=== PATIENT | female | born 1965 | race Caucasian/White ===

== ENCOUNTER 2017-01-17 11:39 | Emergency (ER) | payer OTHER ==
[2017-01-17] MEDS ORDERED: Sodium Chloride 0.9% 1,000 ML IV ONE (12:30)
[2017-01-17] MEDS ORDERED: Dextrose 5%-Lactated Ringers 1,000 ML IV SCH (12:30)
[2017-01-17] MEDS ORDERED: Lactated Ringers 1,000 ML IV SCH (12:30)
[2017-01-17] MEDS ORDERED: Norepinephrine 4 MG in Dextrose 5% in Water 246 ML IV SCH ×2 (13:45)
[2017-01-17 15:27] VITALS: BP 81/45
--- NOTE | 2017-01-18 02:43 | ER ---
DATE SEEN: 01/17/2017 ADDITIONAL HISTORY: Patient had gastric bypass, hypertension, apparently legally blind, analgesia agreement revoked 11/25/2016, lower back pain, chronic back pain. 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 Vitamin B12 nutritional deficiency, and gastroesophageal reflux disease. Obesity. ALLERGIES: Environmental and morphine. PHYSICAL EXAMINATION: VITAL SIGNS: Normal blood pressure at 106/68. 240 plus pounds. /[id number] LS/MODL
--- NOTE | 2017-01-21 02:18 | ER ---
DATE SEEN: 01/17/2017 Negative Campylobacter, shiga toxin, salmonella, shigella, E coli per stool culture performed on 01/17/2017. /[id number] FER/JESUS
--- NOTE | 2017-01-22 10:30 | ER ---
DATE SEEN: 01/17/2017 TIME SEEN: This 52-year-old woman was seen at 1200 hours. HISTORY OF PRESENT ILLNESS: This 52-year-old woman complains she is not feeling well, had diarrhea almost 400 mL en route. She has had diarrhea 10 times a day for the last week and was more extensive recently. She feels lightheaded and dizzy. She has a headache 7/10 in intensity and off and on greater than usual. She has history of headache and migraines, for which she used Imitrex successfully. She has not used Imitrex tonight for this headache. The last time she passed urine was this morning. Normally she has twice a night nocturia. The patient has refused to stop smoking. Still smokes 5 cigarettes a day, and has for many years, for 25 years. At least three alcohol drinks per day for at least 3 days a week. She does have hypertension, migraines, depression, anxiety disorder, seasonal allergies. She is 5, para 2-3-0-2. She is here with her boyfriend. She was diagnosed of having flu 3+ weeks ago. PAST SURGERIES: Previous appendectomy, hysterectomy, cholecystectomy, and C- section. She has migraines and treated with Imitrex. Had headache this morning, but did not treat with Imitrex. CURRENT MEDICATIONS: 1. Lisinopril. 2. Hydrocodone. 3. Hydrochlorothiazide. 4. Gabapentin for chronic pain 600 mg b.i.d. 5. Flexeril 10 mg as needed. 6. Cyanocobalamin B12 1000 mcg once a month for anemia. 7. Imitrex for migraines p.r.n. 8. P.r.n. Percocet. 9. Propranolol for migraines 80 mg daily. 10.Refresh tears one drop both eyes daily. 11.Pantoprazole for GERD. 12.Oxycocone ER 20 mg p.r.n. 13.Olopatadine for glaucoma. 14.Escitalopram 20 mg bedtime. 15.Duloxetine 30 mg b.i.d. 16.Aspirin. 17.Amitriptyline 20 mg daily, 30 mg at bedtime. 18.Clobetasol 0.05 b.i.d. topically. 19.Zyrtec p.r.n. 20.Diclofenac 75 mg b.i.d. 21.Flexeril 10 mg t.i.d. PHYSICAL EXAMINATION: VITAL SIGNS: Blood pressure 64/31, persistent recurrent intermittent systolic blood pressures were in the 70s. Once IV was started, the systolic blood pressure cathy to the 80s. Heart rate was 76 and regular and oxygen saturation 90%. The patient was given 12 L of O2 via breathing mask, and oxygen saturations went from high 80's to 93%, and this stayed at approximately 95% on 10 L. Temperature 36.5 degrees. Highest blood pressure was at 1524 hours 81/45. Norepinephrine was ordered but not started. She was flushed with 3 L of fluid. Eventually, as her second liter was infused, her pressure came up for the first time up to 94-105/70s. She did not have a tachycardia. HEENT: PERRLA intact. Pharynx without abnormality. Pharynx is markedly dry. There is mild thickening of the tongue. NECK: Supple. No bruits, no thyromegaly. HEART: S1, S2. No murmur. ABDOMEN: Soft. No guarding. No abdominal discomfort. No rebound. Bowel sounds markedly increased. No distention. No CVA percussion. PELVIC: Not performed. Lower perianal area, mild erythema. Legs without edema, without tenderness. She has mild myalgia. No linear vascular structure tenderness. Deep tendon reflexes hypoactive in upper and lower extremities. Cranial nerves 2 through 12 intact. DIAGNOSES: 1. Dehydration. 2. Rule out sepsis. 3. No evidence for sepsis, but marked dehydration with acute kidney injury with a creatinine of 8.1, BUN 105. 4. Hyponatremia. 5. Hypochloremia. 6. Metabolic acidosis secondary to or induced by diarrhea, resulting in compensatory use of bicarb to buffer acid, resulting in a low bicarb. LABORATORY DATA: GFR 5. Glucose 127-reactive glucose elevation. Lactic acid 0.9. Calcium 8.2, troponin less than 0.01. Urinalysis; moderate urobilinogen, moderate squamous epithelials, few crystals, moderate amorphous sediment. Urine bacteria few. The patient's urine is very dark and cloudy secondary to dehydration. Urine specific gravity 1.025. White count normal at 8100, PMNs 66, lymphocytes 10, monos 23, eosinophils 1, hemoglobin 11.3, and platelets 233,000. ASSESSMENT: 1. Metabolic acidosis secondary to dehydration from diarrhea. 2. Hyponatremia and hypochloremia secondary to dehydration. 3. Rule out Clostridium difficile. She "has not had antibiotics for a long time". 4. Rule out salmonella or Shigella, probability is very low, because she has not had blood in her stool. Because she has had diarrhea for 3 weeks, stool cultures obtained. 5. Urobilinogen, etiology indeterminate. 6. No evidence for urinary tract infection. 7. Mild anemia. ER COURSE: Patient had fluid flush. IV was placed with difficulty because of her dehydration. She has hypotension that was very significant secondary to dehydration. Sepsis was ruled out. Once the patient received almost 3 L of fluid, her pressure came up to 90s, she was stable, and she was more alert. Because of her acute kidney injury with creatinine of 8.1 and bilirubin 105, patient's status was discussed with Dr. Khan and transferred to [facility], by ambulance. /[id number] FER/JESUS SUMNER
== END 2017-01-17 15:30 ==
LOC: FB.ED 11:39
DX: E87.2 Acidosis (principal); E86.0 Dehydration; N17.9 Acute kidney failure, unspecified; E87.1 Hypo-osmolality and hyponatremia; E87.8 Other disorders of electrolyte and fluid balance, not elsewhere classified; D64.9 Anemia, unspecified; Z79.899 Other long term (current) drug therapy; F17.210 Nicotine dependence, cigarettes, uncomplicated; F32.9 Major depressive disorder, single episode, unspecified; F41.9 Anxiety disorder, unspecified; J30.2 Other seasonal allergic rhinitis
CPT/HCPCS: 36415; 80053; 81001; 83605; 84484; 85025; 87015; 87040; 87045; 87046; 87324; 87899; 93005; 96361; 96374; 99285; J7040; J7042; J7060; J7120

== ENCOUNTER 2017-01-24 16:58 | Emergency (ER) | payer OTHER ==
[2017-01-24] MEDS ORDERED: Ketorolac 60 MG/2 ML SDV IM ONE (17:47)
--- NOTE | 2017-01-24 18:25 | EDM.PDOC ---
ED HPI HEADACHE COMPLAINT - General Stated Complaint: PAIN AND NUMBNESS HEAD AND NECK Time Seen by Provider: 01/24/17 16:59 Source: Reports: Patient, Family History Limitations: Reports: No limitations - History of Present Illness INITIAL COMMENTS - FREE TEXT/NARRATIVE: 52 years old w f with multiple med issues, came to the ed due to chronic neck and headache. Pain is worse today, numbness is new. Pt had those symptoms in the past 7 days, while at [facility] for an upper and lower GI endoscopy for GI bleed. No source of bleed was found, however. No Trauma. Pain located at her r lat post neck. 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 - Related Data Allergies/ADRs: Allergies Allergy/AdvReac Type Severity Reaction Status Date / Time morphine Allergy Hives Verified 01/24/17 18:38 Home Meds: Home Meds Cyanocobalamin (Vitamin B-12) [Vitamin B-12] 1,000 mcg IM Q30D 03/10/14 [History ] Cyclobenzaprine HCl [Cyclobenzaprine HCl] 10 mg PO DAILY PRN 03/10/14 [History] Gabapentin [Gabapentin] 600 mg PO BID 03/10/14 [History] Hydrochlorothiazide 25 mg PO DAILY 03/10/14 [History] Hydrocodone/Acetaminophen [Hydrocodone-Acetaminophen 5-325] 5 - 325 mg PO Q6H PRN 03/10/14 [History] Lisinopril [Prinivil] 20 mg PO DAILY 03/10/14 [History] diphenhydrAMINE [Benadryl] 50 mg PO TID 03/10/14 [History] Amitriptyline [Elavil] 20 mg PO DAILY 01/17/17 [History] Amitriptyline [Elavil] 30 mg PO BEDTIME 01/17/17 [History] Aspirin/Calcium Carbonate/Mag [Aspirin Buffered 325 mg Tab] 325 mg PO BIDMEALS 01/17/17 [History] Azelastine HCl [Azelastine HCl] 2 spr MONET BID 01/17/17 [History] Carboxymethylcellulose Sodium [Refresh Tears] 1 drop EYEBOTH DAILY 01/17/17 [ History] Cetirizine HCl [Zyrtec] 10 mg PO DAILY 01/17/17 [History] Chlorpheniramine Maleate 4 mg PO Q6H PRN 01/17/17 [History] Clobetasol [Clobetasol 0.05%] 1 applic TOP BID 01/17/17 [History] Cyanocobalamin (Vitamin B-12) [B-12] 1,000 mcg PO DAILY 01/17/17 [History] Cyclobenzaprine [Flexeril] 10 mg PO TID 01/17/17 [History] DULoxetine HCl [Cymbalta] 30 mg PO BID 01/17/17 [History] Diclofenac Sodium [Voltaren] 75 mg PO BIDMEALS 01/17/17 [History] Docusate Sodium/Sennosides [Senokot-S] 2 each PO BID PRN 01/17/17 [History] Escitalopram Oxalate [Lexapro] 20 mg PO BEDTIME 01/17/17 [History] Lidocaine 5% [Lidoderm 5%] 2 patch TOP DAILY 01/17/17 [History] Olopatadine [Pataday 0.2% Ophth Soln] 1 drop EYEBOTH DAILY 01/17/17 [History] Pantoprazole Sodium 40 mg PO DAILY 01/17/17 [History] Propranolol [Inderal LA] 80 mg PO DAILY 01/17/17 [History] SUMAtriptan Succinate [Imitrex] 100 mg PO DAILY PRN 01/17/17 [History] oxyCODONE ER [OxyCONTIN] 20 mg PO Q12HR 01/17/17 [History] Past Medical History Cardiovascular History: Reports: Hypertension Musculoskeletal History: Reports: Back pain, chronic - Past Surgical History Musculoskeletal Surgical History: Reports: Other (see below) Other Musculoskeletal Surgeries/Procedures:: vertebral fusion Social & Family History - Tobacco Use Smoking Status *Q: Current Every Day Smoker Years of Tobacco use: 25 Packs/Tins Daily: 0.7 Used Tobacco, but Quit: No Second Hand Smoke Exposure: No - Caffeine Use Caffeine Use: Reports: Soda - Alcohol Use Days Per Week of Alcohol Use: 3 Number of Drinks Per Day: 1 Total Drinks Per Week: 3 - Recreational Drug Use Recreational Drug Use: No ED ROS GENERAL - Review of Systems Review Of Systems: See Below Constitutional: Reports: no symptoms HEENT: Reports: Other (headache) Respiratory: Reports: No Symptoms Endocrine: Reports: no symptoms GI/Abdominal: Reports: No symptoms : Reports: no symptoms Musculoskeletal: Reports: no symptoms Skin: Reports: no symptoms Neurological: Reports: No Symptoms Psychiatric: Reports: No symptoms - Physical Exam Exam: See Below Exam Limited By: No limitations General Appearance: alert, WD/WN, mild distress, moderate distress Ears: normal external exam, normal canal Nose: normal inspection, normal mucosa Throat/Mouth: Normal inspection, Normal lips Head Exam: atraumatic, normocephalic Neck: normal inspection, supple, tender lateral (post.) Respiratory/Chest: no respiratory distress, lungs clear, normal breath sounds Cardiovascular: normal peripheral pulses, regular rate, rhythm, no edema GI/Abdominal: normal bowel sounds, soft, non tender, no organomegaly (Female) Exam: Deferred Rectal (Female) Exam: Deferred Neuro Exam (Abbreviated): alert, oriented, CN II-XII intact, normal cognition Back Exam: normal inspection, full range of motion Extremities: normal inspection, normal range of motion, non-tender, no pedal edema Psychiatric: normal affect, normal mood Skin Exam: Warm, Dry, Intact, Normal color, No rash Course - Vital Signs Text/Narrative:: 52 years old w f with multiple med issues, came to the ed due to chronic neck and headache. Pain is worse today, numbness is new. Pt had those symptoms in the past 7 days, while at [facility] for an upper and lower GI endoscopy for GI bleed. No source of bleed was found, however. No Trauma. Pain located at her r lat post neck. PE:tenderness r post neck, dry mucosal membranes Imaging: CT head/Neck NAD Impression: Neck sprain, Tension Headache, dehydration Tx: Toradol, ice to neck soft collar. Water Reexam: Improved Plan: D/C with instructions Last Recorded V/S: Last Vital Signs Temp 36.7 C 01/24/17 18:41 Pulse 58 L 01/24/17 18:41 Resp 18 01/24/17 18:41 BP 153/90 H 01/24/17 18:41 Pulse Ox 95 01/24/17 18:41 - Orders/Labs/Meds Orders: Active Orders 24 hr Category Date Time Status Cervical Spine wo Cont [CT] Stat Exams 01/24/17 17:47 Taken Head wo Cont [CT] Stat Exams 01/24/17 17:47 Taken Meds: Medications Discontinued Medications Generic Name Dose Route Start Last Admin Trade Name Miah PRN Reason Stop Dose Admin Ketorolac Tromethamine 60 mg 01/24/17 17:47 01/24/17 18:33 Toradol IM 01/24/17 17:48 60 mg ONETIME ONE Administration Departure - Departure Time of Disposition: 19:08 Disposition: Home, Self-Care 01 Condition: good Clinical Impression: Tension headache, Dehydration Sprain, neck Qualifiers: Encounter type: subsequent encounter Qualified Code(s): S13.9XXD - Sprain of joints and ligaments of unspecified parts of neck, subsequent encounter Referrals: Chika Lopez, TRANSPORTATION AIDE [Primary Care Provider] - Additional Instructions: Please increase water intake, please take motrin with food for pain, please wear soft collar for comfort, please follow up, come back to the ed if symptoms get acutely worse. - My Orders Last 24 Hours: My Active Orders 01/24/17 17:47 Cervical Spine wo Cont [CT] Stat Head wo Cont [CT] Stat - Assessment/Plan Last 24 Hours: My Active Orders 01/24/17 17:47 Cervical Spine wo Cont [CT] Stat Head wo Cont [CT] Stat
[2017-01-24 19:27] VITALS: BP 143/87
== END 2017-01-24 19:20 | disposition home or self-care (01) ==
LOC: FB.ED 16:58
DX: G44.209 Tension-type headache, unspecified, not intractable (principal); E86.0 Dehydration; S13.9XXD Sprain of joints and ligaments of unspecified parts of neck, subsequent encounter; I10 Essential (primary) hypertension; F17.210 Nicotine dependence, cigarettes, uncomplicated; Z79.899 Other long term (current) drug therapy; Z88.5 Allergy status to narcotic agent
CPT/HCPCS: 70450; 72125; 96372; 99283; J1885

== ENCOUNTER 2019-06-29 17:54 | Emergency (ER) | payer MEDICARE, OTHER ==
[2019-06-29] MEDS ORDERED: traMADol 50 MG Tab PO ONE (18:30)
[2019-06-29] MEDS ORDERED: Cyclobenzaprine 10 MG Tab PO ONE (18:30)
[2019-06-29] MEDS ORDERED: Ketorolac 60 MG/2 ML SDV IM ONE (18:30)
[2019-06-29] MEDS ORDERED: Lidocaine 5% 700 MG Patch TOP ONE (18:31)
--- NOTE | 2019-06-29 19:36 | EDM.PDOC ---
ED HPI GENERAL MEDICAL PROBLEM - General Chief Complaint: Back Pain or Injury Stated Complaint: LOWER R BACK PAIN Time Seen by Provider: 06/29/19 18:20 Source of Information: Reports: Patient History Limitations: Reports: No Limitations - History of Present Illness INITIAL COMMENTS - FREE TEXT/NARRATIVE: Patient is a 54 YO WF who have a history of chronic low back pain presented to the ED because of worsening low back pain which started yesterday. The pain is sharp,over the lumbar area,8/10. She denies any lose of bowel or bladder control. - Related Data Allergies Allergy/AdvReac Type Severity Reaction Status Date / Time morphine Allergy Hives Verified 01/24/17 18:38 Home Meds: Home Meds Cyanocobalamin (Vitamin B-12) [Vitamin B-12] 1,000 mcg IM Q30D 03/10/14 [History ] Cyclobenzaprine HCl 10 mg PO DAILY PRN 03/10/14 [History] Gabapentin 600 mg PO BID 03/10/14 [History] Hydrocodone/Acetaminophen [Hydrocodone-Acetaminophen 5-325] 5 - 325 mg PO Q6H PRN 03/10/14 [History] diphenhydrAMINE [Benadryl] 50 mg PO TID 03/10/14 [History] hydroCHLOROthiazide [Hydrochlorothiazide] 25 mg PO DAILY 03/10/14 [History] Amitriptyline [Elavil] 20 mg PO DAILY 01/17/17 [History] Amitriptyline [Elavil] 30 mg PO BEDTIME 01/17/17 [History] Aspirin/Calcium Carbonate/Mag [Aspirin Buffered 325 mg Tab] 325 mg PO BIDMEALS 01/17/17 [History] Azelastine HCl 2 spr MONET BID 01/17/17 [History] Carboxymethylcellulose Sodium [Refresh Tears] 1 drop EYEBOTH DAILY 01/17/17 [ History] Cetirizine HCl [Zyrtec] 10 mg PO DAILY 01/17/17 [History] Chlorpheniramine Maleate 4 mg PO Q6H PRN 01/17/17 [History] Clobetasol [Clobetasol 0.05%] 1 applic TOP BID 01/17/17 [History] Cyanocobalamin (Vitamin B-12) [B-12] 1,000 mcg PO DAILY 01/17/17 [History] Cyclobenzaprine [Flexeril] 10 mg PO TID 01/17/17 [History] DULoxetine HCl [Cymbalta] 30 mg PO BID 01/17/17 [History] Diclofenac Sodium [Voltaren] 75 mg PO BIDMEALS 01/17/17 [History] Docusate Sodium/Sennosides [Senokot-S] 2 each PO BID PRN 01/17/17 [History] Escitalopram Oxalate [Lexapro] 20 mg PO BEDTIME 01/17/17 [History] Lidocaine 5% [Lidoderm 5%] 2 patch TOP DAILY 01/17/17 [History] Olopatadine [Pataday 0.2% Ophth Soln] 1 drop EYEBOTH DAILY 01/17/17 [History] Pantoprazole Sodium 40 mg PO DAILY 01/17/17 [History] Propranolol [Inderal LA] 80 mg PO DAILY 01/17/17 [History] SUMAtriptan Succinate [Imitrex] 100 mg PO DAILY PRN 01/17/17 [History] oxyCODONE ER [OxyCONTIN] 20 mg PO Q12HR 01/17/17 [History] Amitriptyline [Elavil] 30 mg PO BEDTIME 06/29/19 [History] Cyclobenzaprine [Flexeril] 10 mg PO TID PRN #30 tab 06/29/19 [Rx] Lidocaine 5% [Lidoderm 5%] 1 patch TOP DAILY #10 patch 06/29/19 [Rx] Lisinopril [Prinivil] 10 mg PO DAILY 06/29/19 [History] Past Medical History Cardiovascular History: Reports: Hypertension Musculoskeletal History: Reports: Back Pain, Chronic - Past Surgical History Musculoskeletal Surgical History: Reports: Other (See Below) Social & Family History - Caffeine Use Caffeine Use: Reports: Soda ED ROS GENERAL - Review of Systems Review Of Systems: See Below Constitutional: Reports: No Symptoms HEENT: Reports: No Symptoms Respiratory: Reports: No Symptoms Cardiovascular: Reports: No Symptoms Endocrine: Reports: No Symptoms GI/Abdominal: Reports: No Symptoms Musculoskeletal: Reports: No Symptoms Skin: Reports: No Symptoms Neurological: Reports: No Symptoms Psychiatric: Reports: No Symptoms ED EXAM,LOWER BACK PAIN/INJURY - Physical Exam Exam: See Below Exam Limited By: No Limitations General Appearance: Alert, No Apparent Distress Respiratory/Chest: No Accessory Muscle Use Cardiovascular: Normal Peripheral Pulses, Regular Rate, Rhythm, No Gallop, No Murmur GI/Abdominal: Normal Bowel Sounds, Soft, Non-Tender (Female) Exam: Normal External Exam Back Exam: Normal Inspection, Muscle Spasm, Vertebral Tenderness DTR - Lower Extremities: 3+: Knee (R), Knee (L), Ankle (R), Ankle (L) Course - Vital Signs Last Recorded V/S: Last Vital Signs Temp 36.9 C 06/29/19 18:15 Pulse 69 06/29/19 18:15 Resp 15 06/29/19 18:15 BP 107/73 06/29/19 18:15 Pulse Ox 98 06/29/19 18:15 - Orders/Labs/Meds Meds: Medications Discontinued Medications Generic Name Dose Route Start Last Admin Trade Name Freq PRN Reason Stop Dose Admin Cyclobenzaprine HCl 10 mg 06/29/19 18:30 06/29/19 18:40 Flexeril PO 06/29/19 18:31 10 mg ONETIME ONE Administration Ketorolac Tromethamine 60 mg 06/29/19 18:30 06/29/19 18:39 Toradol IM 06/29/19 18:31 60 mg ONETIME ONE Administration Lidocaine 700 mg 06/29/19 18:31 06/29/19 18:54 Lidoderm 5% TOP 06/29/19 18:32 700 mg ONETIME ONE Administration Tramadol HCl 100 mg 06/29/19 18:30 06/29/19 18:39 Ultram PO 06/29/19 18:31 100 mg ONETIME ONE Administration Departure - Departure Time of Disposition: 19:20 Disposition: Home, Self-Care 01 Condition: Good Clinical Impression: Acute low back pain - Discharge Information Prescriptions: Cyclobenzaprine [Flexeril] 10 mg PO TID PRN #30 tab PRN Reason: Muscle Spasm Lidocaine 5% [Lidoderm 5%] 1 patch TOP DAILY #10 patch Instructions: Acute Back Pain, Adult Referrals: Chika Lopez NP [Primary Care Provider] - Forms: ED Department Discharge Additional Instructions: please read discharge instructions on low back pain keep the lidoderm patch for 24 hours do not apply heat on top[ of the patch,it can cause skin mauricio flexeril 10 mg every 8 hours as needed for muscle spasm lidoderm patch every 12-24 hours as needed for pain follow up if symptoms persist
[2019-06-29 19:58] VITALS: BP 99/67
== END 2019-06-29 19:45 | disposition home or self-care (01) ==
LOC: FB.ED 17:54
DX: M54.5 Low back pain (principal); I10 Essential (primary) hypertension; Z88.5 Allergy status to narcotic agent; Z79.82 Long term (current) use of aspirin; Z79.899 Other long term (current) drug therapy
CPT/HCPCS: 96372; 99283; A9270; J1885

== ENCOUNTER 2019-12-29 08:56 | Emergency (ER) | payer MEDICARE, BC ==
[2019-12-29] MEDS ORDERED: Acetaminophen/HYDROcodone 325-5 MG Tab PO ONE (09:16)
[2019-12-29] MEDS ORDERED: Ketorolac 60 MG/2 ML SDV IM ONE (09:16)
--- NOTE | 2019-12-29 10:07 | EDM.PDOC ---
ED HPI GENERAL MEDICAL PROBLEM - General Chief Complaint: Upper Extremity Injury/Pain Stated Complaint: FELL ON ICE, HURT LEFT WRIST AND LIP Time Seen by Provider: 12/29/19 09:05 Source of Information: Reports: Patient History Limitations: Reports: No Limitations - History of Present Illness INITIAL COMMENTS - FREE TEXT/NARRATIVE: Patient presented to the ED because she slipped and fell on the ice and landed on her left shoulder and hand. The pain is 9/10, sharp, worse with movements of is LUE. right hand Pain Score (Numeric/FACES): 9 - Related Data Allergies Allergy/AdvReac Type Severity Reaction Status Date / Time morphine Allergy Hives Verified 12/29/19 09:14 environmental Allergy Other Uncoded 06/29/19 20:39 Home Meds: Home Meds Cyanocobalamin (Vitamin B-12) [B-12] 1,000 mcg PO DAILY 01/17/17 [History] Diclofenac Sodium [Voltaren] 75 mg PO ASDIRECTED 01/17/17 [History] Escitalopram Oxalate [Lexapro] 20 mg PO BEDTIME 01/17/17 [History] Propranolol [Inderal LA] 80 mg PO DAILY 01/17/17 [History] SUMAtriptan Succinate [Imitrex] 100 mg PO ASDIRECTED PRN 01/17/17 [History] .Medical Cannibus 1 dose .XX BEDTIME PRN 06/29/19 [History] Amitriptyline [Elavil] 30 mg PO BEDTIME 06/29/19 [History] Aspirin/Butalbital/Caffeine [Fiorinal 50-325-40 MG] 1 cap PO Q6H PRN 06/29/19 [ History] Celecoxib [CeleBREX] 100 mg PO BID 06/29/19 [History] Clobetasol [Clobetasol Propionate 0.05% Cream] 15 gm TOP TID 06/29/19 [History] Cyanocobalamin (Vitamin B-12) [Liquid B-12] 1,000 mcg PO DAILY 06/29/19 [History ] Cyclobenzaprine [Flexeril] 10 mg PO TID PRN #30 tab 06/29/19 [Rx] DULoxetine HCl [Irenka] 40 mg PO BID 06/29/19 [History] Ergocalciferol (Vitamin D2) [Vitamin D2] 2,000 unit PO DAILY 06/29/19 [History] Escitalopram [Lexapro] 10 mg PO DAILY 06/29/19 [History] Gabapentin [Neurontin] 900 mg PO TID 06/29/19 [History] Lidocaine 5% [Lidoderm 5%] 1 patch TOP DAILY #10 patch 06/29/19 [Rx] Olopatadine [Pataday 0.2% Ophth Soln] 1 drop EYEBOTH DAILY 06/29/19 [History] Omeprazole 40 mg PO ACBREAKFAST 06/29/19 [History] Phentermine HCl [Adipex-P] 37.5 mg PO DAILY 06/29/19 [History] Polyvinyl Alcohol/Povidone/Pf [Refresh Classic Eye Drops] 1 each EYEBOTH DAILY 06/29/19 [History] Ranitidine HCl [Ranitidine] 150 mg PO BID 06/29/19 [History] Sennosides/Docusate Sodium [Senokot-S Tablet] 2 each PO BID PRN 06/29/19 [ History] carisoprodoL [Soma] 350 mg PO TID PRN 06/29/19 [History] lisinopriL [Prinivil] 10 mg PO DAILY 06/29/19 [History] metFORMIN HCl [Glucophage Xr] 500 mg PO BID 06/29/19 [History] Amoxicillin/Clavulanate K [Augmentin 500-125 MG] 1 tab PO Q8H #30 tab 12/29/19 [ Rx] Ibuprofen [Ibu] 800 mg PO TID PRN #30 tablet 12/29/19 [Rx] Past Medical History Cardiovascular History: Reports: Hypertension Musculoskeletal History: Reports: Back Pain, Chronic Other Musculoskeletal History: bilateral knee pain, lower back pain,cervial spinal fusion,lumbad spinal fusion. Psychiatric History: Reports: Anxiety, Depression, Other (See Below) Other Psychiatric History: Major depression Hematologic History: Reports: B12 Deficiency - Infectious Disease History Infectious Disease History: Reports: MRSA, Other (See Below) Other Infectious Disease History: Right Axilla - Past Surgical History GI Surgical History: Reports: Appendectomy, Cholecystectomy, Other (See Below) Other GI Surgeries/Procedures: gastric bypass Female Surgical History: Reports: Hysterectomy Musculoskeletal Surgical History: Reports: Knee Replacement, Other (See Below) Other Musculoskeletal Surgeries/Procedures:: back and neck fusion, bilateral partial knee replacement Social & Family History - Family History Family Medical History: Noncontributory - Tobacco Use Smoking Status *Q: Never Smoker - Caffeine Use Caffeine Use: Reports: Coffee, Soda, Tea - Recreational Drug Use Recreational Drug Use: No Review of Systems - Review of Systems Review Of Systems: See Below Constitutional: Reports: No Symptoms Eyes: Reports: No Symptoms Ears: Reports: No Symptoms Nose: Reports: No Symptoms Mouth/Throat: Reports: No Symptoms Respiratory: Reports: No Symptoms Cardiovascular: Reports: No Symptoms Musculoskeletal: Reports: Shoulder Pain, Arm Pain, Hand Pain Skin: Reports: No Symptoms Neurological: Reports: No Symptoms ED EXAM, GENERAL - Physical Exam Exam: See Below Exam Limited By: No Limitations General Appearance: Alert, No Apparent Distress Ears: Normal External Exam, Normal Canal Nose: Normal Inspection, Normal Mucosa Throat/Mouth: Normal Inspection, Normal Lips, Normal Teeth Head: Atraumatic, Normocephalic Neck: Normal Inspection, Supple, Non-Tender, Full Range of Motion Respiratory/Chest: No Respiratory Distress, Lungs Clear, Normal Breath Sounds, No Accessory Muscle Use, Chest Non-Tender Cardiovascular: Normal Peripheral Pulses, Regular Rate, Rhythm, No Edema, No Gallop, No JVD, No Murmur, No Rub Back Exam: Normal Inspection, Full Range of Motion Extremities: Normal Inspection, Other (lender left shoulder and left bryan) Neurological: Alert, Oriented, CN II-XII Intact, Normal Cognition Psychiatric: Normal Affect Skin Exam: Warm Course - Vital Signs Text/Narrative:: Xray left shoulder and left hand-neg,see result Toradol 60 mg IM x1 Glen 5/325 2 po x1 dose with significant relief of her pain Last Recorded V/S: Last Vital Signs Temp 36.8 C 12/29/19 10:35 Pulse 77 12/29/19 10:35 Resp 18 12/29/19 10:35 BP 139/98 H 12/29/19 10:35 Pulse Ox 96 12/29/19 10:35 - Orders/Labs/Meds Meds: Medications Discontinued Medications Generic Name Dose Route Start Last Admin Trade Name Freq PRN Reason Stop Dose Admin Hydrocodone Bitart/Acetaminophen 2 tab 12/29/19 09:16 12/29/19 09:25 Glen 325-5 Mg PO 12/29/19 09:17 2 tab ONETIME ONE Administration Ketorolac Tromethamine 60 mg 12/29/19 09:16 12/29/19 09:26 Toradol IM 12/29/19 09:17 60 mg ONETIME ONE Administration Departure - Departure Time of Disposition: 10:05 Disposition: Home, Self-Care 01 Condition: Good Clinical Impression: Hand sprain, Shoulder sprain - Discharge Information Prescriptions: Amoxicillin/Clavulanate K [Augmentin 500-125 MG] 1 tab PO Q8H #30 tab Ibuprofen [Ibu] 800 mg PO TID PRN #30 tablet PRN Reason: Pain Instructions: Amoxicillin; Clavulanic Acid tablets, Shoulder Sprain, Wrist Splint, Adult, [id number], Wrist Sprain, Adult Referrals: Chika Lopez CDL PROGRAM COORDINATOR [Primary Care Provider] - Forms: ED Department Discharge Additional Instructions: please read discharge instructions on shoulder and wrist/hand sprain apply ice or heat whichever makes the pain feel better keep the splint on your left wrist until the pain goes away take ibuprofen 800 mg with tylenol 1000 mg every 8 hours as needed for pain we will call you if there is any changes on the xray reading folloe up eith your doctor after a week if pain doesn't go away for a repeat xray Sepsis Event Note - Evaluation Sepsis Screening Result: No Definite Risk - Focused Exam Date Exam was Performed: 12/30/19 Time Exam was Performed: 07:40
[2019-12-29 11:22] VITALS: BP 139/98; PULSE 77
--- NOTE | 2019-12-29 11:30 | CR ---
INDICATION: Fell. Left hand and shoulder pain - base of thumb area. LEFT HAND: Three views of the left hand were obtained 12/29/2019 - no comparisons. A small sclerotic density is noted in the proximal metaphysis - shaft of the first metacarpal, likely representing a benign bone island. A fracture, dislocation or other significant appearing bone or joint abnormality was not identified. If symptoms persist - if occult bony abnormality is suspected clinically, re- examination in 10 to 14 days may be helpful. MTDD
--- NOTE | 2019-12-29 11:34 | CR ---
INDICATION: Fell, left hand and shoulder pain. LEFT SHOULDER: Three views of the left shoulder were obtained 12/29/2019 - no comparisons. Mild degenerative changes are noted at the AC joint. A fracture, dislocation or other significant bone or joint abnormality was not identified. Adjacent ribs and lung were unremarkable. IMPRESSION: Mild osteoarthritis AC joint. MTDD
== END 2019-12-29 10:35 | disposition home or self-care (01) ==
LOC: FB.ED 08:56
DX: S43.402A Unspecified sprain of left shoulder joint, initial encounter (principal); S63.92XA Sprain of unspecified part of left wrist and hand, initial encounter; I10 Essential (primary) hypertension; Z88.5 Allergy status to narcotic agent; Z91.09 Other allergy status, other than to drugs and biological substances; Z79.899 Other long term (current) drug therapy; Z79.82 Long term (current) use of aspirin; W00.0XXA Fall on same level due to ice and snow, initial encounter
CPT/HCPCS: 73030; 73130; 96372; 99283; A9270; J1885

== ENCOUNTER 2021-06-01 16:19 | Emergency (ER) | payer MEDICARE, BC ==
[2021-06-01] MEDS ORDERED: Ketorolac 30 MG/ML SDV IM STA (16:46)
[2021-06-01] MEDS ORDERED: Acetaminophen/oxyCODONE 325-5 MG Tab PO STA (16:46)
[2021-06-01] MEDS ORDERED: tiZANidine 4 MG Tab PO STA (16:46)
[2021-06-01 16:59] VITALS: BP 143/95; PULSE 72
--- NOTE | 2021-06-01 17:10 | EDM.PDOC ---
ED HPI GENERAL MEDICAL PROBLEM - General Chief Complaint: Back Pain or Injury Stated Complaint: back pain Time Seen by Provider: 06/01/21 16:25 Source of Information: Reports: Patient History Limitations: Reports: No Limitations - History of Present Illness INITIAL COMMENTS - FREE TEXT/NARRATIVE: Patient presented to the ED because of low back pain which started weeks ago. The pain is sharp,10/10, radiating to the Rt buttock and Rt thigh. There is no lost of bowel or bladder control. She took 1 Milton 5mg and Flexeril 10 mg without any significant relief. Treatments VALUE STREAM COACH: Reports: Acetaminophen, NSAIDS Bilateral Lower Back Pain Score (Numeric/FACES): 10 - Related Data Allergies Allergy/AdvReac Type Severity Reaction Status Date / Time morphine Allergy Hives Verified 12/29/19 09:14 environmental Allergy Other Uncoded 06/29/19 20:39 Home Meds: Home Meds Cyanocobalamin (Vitamin B-12) [B-12] 1,000 mcg PO DAILY 01/17/17 [History] Diclofenac Sodium [Voltaren] 75 mg PO ASDIRECTED 01/17/17 [History] Escitalopram Oxalate [Lexapro] 20 mg PO BEDTIME 01/17/17 [History] Propranolol [Inderal LA] 80 mg PO DAILY 01/17/17 [History] SUMAtriptan succinate [Imitrex] 100 mg PO ASDIRECTED PRN 01/17/17 [History] .Medical Cannibus 1 dose .XX BEDTIME PRN 06/29/19 [History] Amitriptyline [Elavil] 30 mg PO BEDTIME 06/29/19 [History] Aspirin/Butalbital/Caffeine [Fiorinal 50-325-40 MG] 1 cap PO Q6H PRN 06/29/19 [History] Celecoxib [CeleBREX] 100 mg PO BID 06/29/19 [History] Clobetasol [Clobetasol Propionate 0.05% Cream] 15 gm TOP TID 06/29/19 [History] Cyanocobalamin (Vitamin B-12) [Liquid B-12] 1,000 mcg PO DAILY 06/29/19 [History] Cyclobenzaprine [Flexeril] 10 mg PO TID PRN #30 tab 06/29/19 [Rx] DULoxetine HCl [Irenka] 40 mg PO BID 06/29/19 [History] Ergocalciferol (Vitamin D2) [Vitamin D2] 2,000 unit PO DAILY 06/29/19 [History] Escitalopram [Lexapro] 10 mg PO DAILY 06/29/19 [History] Gabapentin [Neurontin] 900 mg PO TID 06/29/19 [History] Lidocaine 5% [Lidoderm 5%] 1 patch TOP DAILY #10 patch 06/29/19 [Rx] Olopatadine [Pataday 0.2% Ophth Soln] 1 drop EYEBOTH DAILY 06/29/19 [History] Omeprazole 40 mg PO ACBREAKFAST 06/29/19 [History] Phentermine HCl [Adipex-P] 37.5 mg PO DAILY 06/29/19 [History] Polyvinyl Alcohol/Povidone/Pf [Refresh Classic Eye Drops] 1 each EYEBOTH DAILY 06/29/19 [History] Ranitidine HCl [Ranitidine] 150 mg PO BID 06/29/19 [History] Sennosides/Docusate Sodium [Senokot-S Tablet] 2 each PO BID PRN 06/29/19 [Histor y] carisoprodoL [Soma] 350 mg PO TID PRN 06/29/19 [History] lisinopriL [Prinivil] 10 mg PO DAILY 06/29/19 [History] metFORMIN HCl [Glucophage Xr] 500 mg PO BID 06/29/19 [History] Amoxicillin/Clavulanate K [Augmentin 500-125 MG] 1 tab PO Q8H #30 tab 12/29/19 [Rx] Ibuprofen [Ibu] 800 mg PO TID PRN #30 tablet 12/29/19 [Rx] Past Medical History Cardiovascular History: Reports: Hypertension Musculoskeletal History: Reports: Back Pain, Chronic Other Musculoskeletal History: bilateral knee pain, lower back pain,cervial spinal fusion,lumbad spinal fusion. Psychiatric History: Reports: Anxiety, Depression, Other (See Below) Other Psychiatric History: Major depression Hematologic History: Reports: B12 Deficiency - Infectious Disease History Infectious Disease History: Reports: MRSA, Other (See Below) Other Infectious Disease History: Right Axilla - Past Surgical History GI Surgical History: Reports: Appendectomy, Cholecystectomy, Other (See Below) Other GI Surgeries/Procedures: gastric bypass Female Surgical History: Reports: Hysterectomy Musculoskeletal Surgical History: Reports: Knee Replacement, Other (See Below) Other Musculoskeletal Surgeries/Procedures:: back and neck fusion, bilateral partial knee replacement Social & Family History - Family History Family Medical History: No Pertinent Family History - Tobacco Use Tobacco Use Status *Q: Never Tobacco User - Caffeine Use Caffeine Use: Reports: Coffee - Recreational Drug Use Recreational Drug Use: No ED ROS GENERAL - Review of Systems Review Of Systems: See Below Constitutional: Reports: No Symptoms HEENT: Reports: No Symptoms Respiratory: Reports: No Symptoms Cardiovascular: Reports: No Symptoms Endocrine: Reports: No Symptoms GI/Abdominal: Reports: No Symptoms : Reports: No Symptoms Musculoskeletal: Reports: Back Pain, Muscle Pain, Muscle Stiffness Skin: Reports: No Symptoms Neurological: Reports: No Symptoms Psychiatric: Reports: No Symptoms Hematologic/Lymphatic: Reports: No Symptoms ED EXAM,LOWER BACK PAIN/INJURY - Physical Exam Exam: See Below Exam Limited By: No Limitations General Appearance: Alert, No Apparent Distress Ears: Normal External Exam, Normal Canal, Hearing Grossly Normal Nose: Normal Inspection, Normal Mucosa, No Blood Throat/Mouth: Normal Inspection, Normal Lips, Normal Teeth, Normal Gums Head: Atraumatic, Normocephalic Neck: Normal Inspection, Supple, Non-Tender, Full Range of Motion Respiratory/Chest: No Respiratory Distress, Lungs Clear, Normal Breath Sounds Cardiovascular: Normal Peripheral Pulses, Regular Rate, Rhythm, No Edema, No Gallop, No JVD, No Murmur, No Rub GI/Abdominal: Normal Bowel Sounds, Soft, Non-Tender, No Organomegaly, No Distention, No Abnormal Bruit, No Mass, Pelvis Stable Back Exam: Normal Inspection, Full Range of Motion, Muscle Spasm, Vertebral Tenderness Extremities: Normal Inspection, Normal Range of Motion, Non-Tender Neurological: Alert, Normal Mood/Affect, Normal Dorsiflexion, CN II-XII Intact Course - Vital Signs Text/Narrative:: Toradol 60 mg IM x1 Percocet 5 mg, 2 PO x1 Tizanidine 4 mg PO x1 Last Recorded V/S: Last Vital Signs Temp 36.6 C 06/01/21 16:20 Pulse 72 06/01/21 16:20 Resp 18 06/01/21 16:20 BP 143/95 H 06/01/21 16:20 Pulse Ox 97 06/01/21 16:20 - Orders/Labs/Meds Meds: Medications Discontinued Medications Generic Name Dose Route Start Last Admin Trade Name Miah PRN Reason Stop Dose Admin Ketorolac Tromethamine 60 mg 06/01/21 16:46 06/01/21 17:14 Ketorolac 30 Mg/Ml Sdv IM 06/01/21 16:47 60 mg NOW STA Administration Oxycodone/Acetaminophen 2 tab 06/01/21 16:46 06/01/21 17:15 Acetaminophen/Oxycodone 325-5 Mg Tab PO 06/01/21 16:47 2 tab NOW STA Administration Tizanidine HCl 4 mg 06/01/21 16:46 06/01/21 17:14 Tizanidine 4 Mg Tab PO 06/01/21 16:47 4 mg NOW STA Administration Departure - Departure Time of Disposition: 17:45 Disposition: Home, Self-Care 01 Condition: Good Clinical Impression: Low back pain, DDD (degenerative disc disease) - Discharge Information Instructions: Acute Back Pain, Adult, Degenerative Disk Disease, Chronic Back Pain, [id number] Referrals: Chika Lopez, MOTOR COACH TOUR OPERATOR [Primary Care Provider] - Forms: ED Department Discharge Additional Instructions: Please read discharge instructions on low back pain Apply ice or heat whichever makes the pain feel better Continue your Milton,gabapentin, and flexeril as prescribed by your doctor Call your clinic doctor on Friday and tell her to order an MRI of your lower back. MRI need to be scheduled as an outpatient when an otologist is available Sepsis Event Note (ED) - Evaluation Sepsis Screening Result: No Definite Risk
== END 2021-06-01 17:50 | disposition home or self-care (01) ==
LOC: FB.ED 16:19
DX: M51.36 Other intervertebral disc degeneration, lumbar region (principal); I10 Essential (primary) hypertension; Z88.5 Allergy status to narcotic agent; Z91.09 Other allergy status, other than to drugs and biological substances; Z79.82 Long term (current) use of aspirin; Z79.84 Long term (current) use of oral hypoglycemic drugs
CPT/HCPCS: 96372; 99283; A9270; J1885

== ENCOUNTER 2021-06-14 17:37 | Emergency (ER) | payer MEDICARE, BC ==
[2021-06-14] MEDS ORDERED: methylPREDNISolone Sodium Succinate 125 MG/2 ML SDV IM ONE (18:15)
[2021-06-14] MEDS ORDERED: Ketorolac 30 MG/ML SDV IM ONE (18:15)
--- NOTE | 2021-06-14 18:57 | EDM.PDOC ---
ED HPI GENERAL MEDICAL PROBLEM - General Chief Complaint: General Stated Complaint: SEVERE PAIN Time Seen by Provider: 06/14/21 18:05 Source of Information: Reports: Patient History Limitations: Reports: No Limitations - History of Present Illness INITIAL COMMENTS - FREE TEXT/NARRATIVE: c/o LBP pt has had inc'd pain in her low back and RLE x 1.5m, using a cane, 2d ago was changed from hc/apap 5/325 to oxycodone 5/325 mg 1 q4h by Chika Jeffery MRI 10d ago showed DJD and old fusion pt reports 6 surgeries in past for DJD: neck, low back, both knees more than once no h/o trauma no h/o worked at [email or web address] until 6y ago, lives alone has new ortho surgeon at [facility] (prior one left), he referred pt to a back injection at [facility] on 06/26, last injection was 2y ago sleeps on a firm mattress per MPMP pt got 60 tabs of oxy/apap 5/325 on 06/12 for a 10d supply. Also got 270 tabs of gabapentin 300 mg for 30d supply on 05-19-21 also taking has ketorolac 10 mg PO at home, took one this AM usually takes 8 Aleves qd, advised to take no more than 5.5 tabs in 24h pt did not appear aware that Percocet has APAP in it, advised to take with regular 325 mg apap, not 500 mg Treatments VP CARDIOVASCULAR: Reports: Other (see below) Other Treatments VP CARDIOVASCULAR: Oxycodone Right Side Pain Score (Numeric/FACES): 10 - Related Data Allergies Allergy/AdvReac Type Severity Reaction Status Date / Time morphine Allergy Hives Verified 06/14/21 17:54 environmental Allergy Other Uncoded 06/29/19 20:39 Home Meds: Home Meds Cyanocobalamin (Vitamin B-12) [B-12] 1,000 mcg PO DAILY 01/17/17 [History] Diclofenac Sodium [Voltaren] 75 mg PO ASDIRECTED 01/17/17 [History] Escitalopram Oxalate [Lexapro] 20 mg PO BEDTIME 01/17/17 [History] Propranolol [Inderal LA] 80 mg PO DAILY 01/17/17 [History] SUMAtriptan succinate [Imitrex] 100 mg PO ASDIRECTED PRN 01/17/17 [History] .Medical Cannibus 1 dose .XX BEDTIME PRN 06/29/19 [History] Amitriptyline [Elavil] 30 mg PO BEDTIME 06/29/19 [History] Aspirin/Butalbital/Caffeine [Fiorinal 50-325-40 MG] 1 cap PO Q6H PRN 06/29/19 [History] Celecoxib [CeleBREX] 100 mg PO BID 06/29/19 [History] Clobetasol [Clobetasol Propionate 0.05% Cream] 15 gm TOP TID 06/29/19 [History] Cyanocobalamin (Vitamin B-12) [Liquid B-12] 1,000 mcg PO DAILY 06/29/19 [History] Cyclobenzaprine [Flexeril] 10 mg PO TID PRN #30 tab 06/29/19 [Rx] DULoxetine HCl [Irenka] 40 mg PO BID 06/29/19 [History] Ergocalciferol (Vitamin D2) [Vitamin D2] 2,000 unit PO DAILY 06/29/19 [History] Escitalopram [Lexapro] 10 mg PO DAILY 06/29/19 [History] Gabapentin [Neurontin] 900 mg PO TID 06/29/19 [History] Lidocaine 5% [Lidoderm 5%] 1 patch TOP DAILY #10 patch 06/29/19 [Rx] Olopatadine [Pataday 0.2% Ophth Soln] 1 drop EYEBOTH DAILY 06/29/19 [History] Omeprazole 40 mg PO ACBREAKFAST 06/29/19 [History] Phentermine HCl [Adipex-P] 37.5 mg PO DAILY 06/29/19 [History] Polyvinyl Alcohol/Povidone/Pf [Refresh Classic Eye Drops] 1 each EYEBOTH DAILY 06/29/19 [History] Ranitidine HCl [Ranitidine] 150 mg PO BID 06/29/19 [History] Sennosides/Docusate Sodium [Senokot-S Tablet] 2 each PO BID PRN 06/29/19 [History] carisoprodoL [Soma] 350 mg PO TID PRN 06/29/19 [History] lisinopriL [Prinivil] 10 mg PO DAILY 06/29/19 [History] metFORMIN HCl [Glucophage Xr] 500 mg PO BID 06/29/19 [History] Amoxicillin/Clavulanate K [Augmentin 500-125 MG] 1 tab PO Q8H #30 tab 12/29/19 [Rx] Ibuprofen [Ibu] 800 mg PO TID PRN #30 tablet 12/29/19 [Rx] predniSONE 20 mg PO ASDIRECTED #8 tab 06/14/21 [Rx] Past Medical History Cardiovascular History: Reports: Hypertension Musculoskeletal History: Reports: Back Pain, Chronic Other Musculoskeletal History: bilateral knee pain, lower back pain,cervial spinal fusion,lumbad spinal fusion. Psychiatric History: Reports: Anxiety, Depression, Other (See Below) Other Psychiatric History: Major depression Hematologic History: Reports: B12 Deficiency - Infectious Disease History Infectious Disease History: Reports: MRSA, Other (See Below) Other Infectious Disease History: Right Axilla - Past Surgical History GI Surgical History: Reports: Appendectomy, Cholecystectomy, Other (See Below) Other GI Surgeries/Procedures: gastric bypass Female Surgical History: Reports: Hysterectomy Musculoskeletal Surgical History: Reports: Knee Replacement, Other (See Below) Other Musculoskeletal Surgeries/Procedures:: back and neck fusion, bilateral partial knee replacement Social & Family History - Family History Family Medical History: No Pertinent Family History - Tobacco Use Tobacco Use Status *Q: Never Tobacco User - Caffeine Use Caffeine Use: Reports: Coffee - Recreational Drug Use Recreational Drug Use: No ED ROS GENERAL - Review of Systems Review Of Systems: See Below Constitutional: Reports: No Symptoms HEENT: Reports: No Symptoms Respiratory: Reports: No Symptoms Cardiovascular: Reports: No Symptoms Endocrine: Reports: No Symptoms GI/Abdominal: Reports: No Symptoms : Reports: No Symptoms Musculoskeletal: Reports: Back Pain, Leg Pain Skin: Reports: No Symptoms Neurological: Reports: No Symptoms Psychiatric: Reports: No Symptoms Hematologic/Lymphatic: Reports: No Symptoms Immunologic: Reports: No Symptoms ED EXAM,LOWER BACK PAIN/INJURY - Physical Exam Exam: See Below Exam Limited By: No Limitations General Appearance: Alert, WD/WN Back Exam: Other (sitting on edge of bed, holding cane, no point tender of low back, old midline scar in low back, allows extension of both knees to 0 degres, RLE is nontender) Course - Vital Signs Last Recorded V/S: Last Vital Signs Temp 36.9 C 06/14/21 17:45 Pulse 68 06/14/21 17:45 Resp 16 06/14/21 17:45 BP 139/98 H 06/14/21 17:45 Pulse Ox 98 06/14/21 17:45 - Orders/Labs/Meds Meds: Medications Discontinued Medications Generic Name Dose Route Start Last Admin Trade Name Miah PRN Reason Stop Dose Admin Ketorolac Tromethamine 60 mg 06/14/21 18:15 06/14/21 18:19 Ketorolac 30 Mg/Ml Sdv IM 06/14/21 18:16 60 mg ONETIME ONE Administration Methylprednisolone Sodium Succinate 125 mg 06/14/21 18:15 06/14/21 18:19 Methylprednisolone Sodium Succinate 125 Mg/2 Ml Sdv IM 06/14/21 18:16 125 mg ONETIME ONE Administration - Re-Assessments/Exams Free Text/Narrative Re-Assessment/Exam: 06/14/21 19:06 MRI 8-2 did not show herniated disc, DJD noted, questionable narrowing at R S5- L1 pain seems to be d/t primarily to DJD pt says that ortho told her that she "had a cyst" that may need to be removed and new hardware may need to be placed Departure - Departure Time of Disposition: 18:52 Disposition: Home, Self-Care 01 Condition: Good Clinical Impression: Low back pain - Discharge Information *PRESCRIPTION DRUG MONITORING PROGRAM REVIEWED*: Yes *COPY OF PRESCRIPTION DRUG MONITORING REPORT IN PATIENT LEONEL: Not Applicable Prescriptions: predniSONE 20 mg PO ASDIRECTED #8 tab Instructions: Chronic Back Pain Additional Instructions: You can take up to 5.5 tabs of Aleve in 24 hours. However, you cannot take Aleve at the same time as ibuprofen or Toradol, as they are all NSAIDs. You can take up to 12 tabs of regular acetaminophen 325 mg in 24 hours. However, you need to be careful as the Percocet has acetaminophen 325 mg in it. One strategy is to take oxycodone with acetaminophen 5/325 mg (Percocet) one tab along with regular acetaminophen 325 mg one tab every 4 hours. For pain and inflammation, take prednisone 20 mg 2 tabs tomorrow, then 1 tab daily for 6 days. A TENS unit may help, which you should discuss further with your orthopedic surgeon. Sepsis Event Note (ED) - Evaluation Sepsis Screening Result: No Definite Risk - Focused Exam Vital Signs: Vital Signs Temp Pulse Resp BP Pulse Ox 06/14/21 17:45 36.9 C 68 16 139/98 H 98
[2021-06-14 19:22] VITALS: BP 138/71; PULSE 65
== END 2021-06-14 19:15 | disposition home or self-care (01) ==
LOC: FB.ED 17:37
DX: M54.5 Low back pain (principal); I10 Essential (primary) hypertension; Z88.5 Allergy status to narcotic agent; Z79.82 Long term (current) use of aspirin; Z79.899 Other long term (current) drug therapy
CPT/HCPCS: 96372; 99283; J1885; J2930

== ENCOUNTER 2022-07-02 07:11 | Emergency (ER) | payer MEDICARE ==
[2022-07-02] MEDS: Ibuprofen 800 MG Tab PO STA (07:58)
[2022-07-02] MEDS: Acetaminophen/HYDROcodone 325-5 MG Tab PO STA (07:59)
[2022-07-02] MEDS: Cyclobenzaprine 10 MG Tab PO STA (08:01)
[2022-07-02 08:19] VITALS: BP 144/81; PULSE 65
== END 2022-07-02 08:00 | disposition home or self-care (01) ==
LOC: FB.ED 07:11
DX: M51.36 Other intervertebral disc degeneration, lumbar region (principal); M25.512 Pain in left shoulder; I10 Essential (primary) hypertension; Z88.6 Allergy status to analgesic agent; Z91.048 Other nonmedicinal substance allergy status; Z79.899 Other long term (current) drug therapy; Z79.82 Long term (current) use of aspirin; Z79.84 Long term (current) use of oral hypoglycemic drugs; Z90.49 Acquired absence of other specified parts of digestive tract; Z90.710 Acquired absence of both cervix and uterus
CPT/HCPCS: 99283; A9270